=== PATIENT | female | born 1995 | race Caucasian/White ===

== ENCOUNTER → 2017-11-18 | Outpatient (CLI) | payer OTHER ==
[2017-11-18 13:56] LABS: HEMATOCRIT 31.3 % (36.0-47.0); MEAN CORPUSCULAR HEMOGLOBIN 33.5 pg (27.0-33.0); MEAN CORPUSCULAR HGB CONC 35.1 g/dl (32.0-36.5); MEAN CORPUSCULAR VOLUME 95.4 fl (80.0-96.0); PLATELET COUNT, AUTOMATED 290 10^3/uL (150-450); RED BLOOD COUNT 3.28 10^6/uL (4.00-5.40); WHITE BLOOD COUNT 14.9 10^3/uL (4.0-10.0)
[2017-11-18 14:19] LABS: GLUCOSE CHALLENGE TEST 1 HOUR 124 MG/DL (LESS THAN 140)
== END ==
LOC: M LAB 12:48
DX: Z34.02 Encounter for supervision of normal first pregnancy, second trimester (principal); Z3A.00 Weeks of gestation of pregnancy not specified
CPT/HCPCS: 82950

== ENCOUNTER → 2018-01-04 | Outpatient (REF) | payer OTHER | LOC: M LAB REF 12:55 | DX: Z34.03 Encounter for supervision of normal first pregnancy, third trimester (principal) ==

== ENCOUNTER → 2018-01-07 | Outpatient (REF) | payer OTHER | LOC: M LAB REF 12:55 | DX: Z34.03 Encounter for supervision of normal first pregnancy, third trimester (principal) ==

== ENCOUNTER 2018-01-24 19:42 | Inpatient (IN) | payer OTHER ==
[2018-01-24] MEDS ORDERED: LR 1,000 ML IV (23:07)
[2018-01-24 23:49] LABS: HEMATOCRIT 38.6 % (36.0-47.0); HEMOGLOBIN 13.2 g/dl (12.0-15.5); MEAN CORPUSCULAR HEMOGLOBIN 32.5 pg (27.0-33.0); MEAN CORPUSCULAR HGB CONC 34.2 g/dl (32.0-36.5); MEAN CORPUSCULAR VOLUME 95.1 fl (80.0-96.0); PLATELET COUNT, AUTOMATED 296 10^3/uL (150-450); RED BLOOD COUNT 4.06 10^6/uL (4.00-5.40); RED CELL DISTRIBUTION WIDTH 12.3 % (11.5-14.5); WHITE BLOOD COUNT 13.7 10^3/uL (4.0-10.0)
[2018-01-25] MEDS ORDERED: FENTANYL 2MCG/ML ROPIVACAINE 0.2% IN 0.9% NACL 200ML IVBAG As Ordered (00:15)
[2018-01-25] MEDS ORDERED: NALOXONE INJ 0.4 MG/1 ML VIAL (J2310) IV (01:30)
[2018-01-25] MEDS ORDERED: REFRIGERATOR IV KEYS XX (01:30)
[2018-01-25] MEDS ORDERED: EPIDURAL COMMENT XX (01:30)
[2018-01-25] MEDS ORDERED: LACTATED RINGER'S 1000 ML IV (01:30)
[2018-01-25] MEDS ORDERED: FENTANYL/ROPIVACAINE/NACL BAG 200 ML EPIDURAL (01:30)
[2018-01-25] MEDS ORDERED: diphenhydrAMINE INJ 50MG/ML VIAL (J1200) IV (01:30)
[2018-01-25] MEDS ORDERED: ePHEDrine SULFATE 25 MG/5 ML(5MG/ML) SYRINGE IV (01:30)
[2018-01-25] MEDS ORDERED: ONDANSETRON 4MG/2ML VIAL (J2405) IV (01:30)
[2018-01-25] MEDS ORDERED: EPIDURAL/PCA KEYS XX (01:30)
[2018-01-25] MEDS ORDERED: ePHEDrine SULFATE 25 MG/5 ML(5MG/ML) SYRINGE As Ordered (02:10)
[2018-01-25] MEDS: OXYTOCIN DRIP 30 UNITS in APPROPRIATE DILUENT 1 EA IV ×2 (08:31→10:14)
[2018-01-25] MEDS: PRENATAL VITAMINS CHEWABLE TABLET PO (09:00)
[2018-01-25] MEDS: LACTATED RINGER'S 1000 ML IV (09:02)
[2018-01-25] MEDS ORDERED: ANUSOL HC CREAM 30GM TOP (10:15)
[2018-01-25] MEDS ORDERED: DIBUCAINE 1% OINTMENT 30GM TOP (10:15)
[2018-01-25] MEDS ORDERED: METHYLERGONOVINE MALEATE 0.2 MG TAB PO (10:15)
[2018-01-25] MEDS ORDERED: DOCUSATE SODIUM 100 MG CAP PO (10:15)
[2018-01-25] MEDS: MEASLES,MUMPS,RUBELLA VACCINE INJ (MMR-II) (90707) SC (13:22)
[2018-01-25] MEDS: RHOGAM 300 MCG (1500 IU) INJ (J2790) IM (13:22)
[2018-01-25] MEDS: IBUPROFEN 800 MG TAB PO ×2 (13:47→22:59)
[2018-01-26] MEDS: IBUPROFEN 800 MG TAB PO ×2 (07:48→17:20)
[2018-01-26] MEDS: PRENATAL VITAMINS CHEWABLE TABLET PO (07:48)
[2018-01-27] MEDS: IBUPROFEN 800 MG TAB PO (05:39)
[2018-01-27] MEDS: ACETAMINOPHEN 500 MG TAB PO (07:44)
[2018-01-27] MEDS: PRENATAL VITAMINS CHEWABLE TABLET PO (07:44)
== END 2018-01-27 11:48 | disposition home or self-care (01) | DRG 560 ==
LOC: M LDO 19:42 → M LDI 23:09 → M OBS 01-25 13:07
PROVIDERS: Obstetrics & Gynecology
PROC: 10E0XZZ Delivery of Products of Conception, External Approach (ICD-10-PCS; principal; 2018-01-25)
PROC: 0HQ9XZZ Repair Perineum Skin, External Approach (ICD-10-PCS; 2018-01-25)
DX: O70.0 First degree perineal laceration during delivery (principal); O99.820 Streptococcus B carrier state complicating pregnancy; Z37.0 Single live birth; Z3A.37 37 weeks gestation of pregnancy

== ENCOUNTER 2018-03-03 11:38 | Emergency (ER) | payer OTHER | END 2018-03-03 12:45 | disposition home or self-care (01) | LOC: M ED 11:38 | DX: O99.345 Other mental disorders complicating the puerperium (principal); F53.0 Postpartum depression | CPT/HCPCS: 99282 ==

== ENCOUNTER → 2018-03-15 | Outpatient (REF) | payer OTHER ==
[2018-03-15 22:08] LABS: FREE T4 1.01 NG/DL (0.76-1.46)
[2018-03-15 22:08] LABS: THYROID STIMULATING HORMONE 0.632 uIU/ML (0.358-3.740)
== END ==
LOC: M SFHCCLAY 11:30
DX: F53.0 Postpartum depression (principal)
CPT/HCPCS: 84443

== ENCOUNTER → 2019-03-20 | Outpatient (CLI) | payer OTHER, SELFPAY ==
[~2019-03-20] MED LIST: IBUP-1114 PO; MAPA500T2 PO; OMEP40CA97; OMEP40CA97 PO; PRE-TAB3 PO; PREN1TAB26 PO
--- NOTE | 2019-03-20 11:24 | REP ---
Clinical: Dyspnea . Comparison: None . Technique: PA and lateral. Findings: The mediastinum and cardiac silhouette are normal. The lung phelps are clear and without acute consolidation, effusion, or pneumothorax. The skeletal structures are intact and normal. Impression: 1. No acute cardiopulmonary process. Electronically Signed by Edward Coombs MD 03/20/2019 11:15 A
== END ==
LOC: M CLY 10:58
PROVIDERS: ATTEND Family Medicine
DX: R05 Cough (principal); R06.89 Other abnormalities of breathing

== ENCOUNTER 2019-05-09 13:59 | Emergency (ER) | payer MEDICAID, SELFPAY ==
[~2019-05-09] VITALS: Ht 157.5 cm; Wt 86.4 kg
[2019-05-09 14:00] VITALS: BP 172/85
[2019-05-09] MEDS ORDERED: CARBOT OT (14:12)
[2019-05-09] MEDS ORDERED: AUGM875T28 PO (15:38)
== END 2019-05-09 15:57 | disposition home or self-care (01) ==
LOC: M ED 13:59
DX: H66.91 Otitis media, unspecified, right ear (principal); F17.218 Nicotine dependence, cigarettes, with other nicotine-induced disorders

== ENCOUNTER → 2022-08-20 | Outpatient (REF) | payer OTHER ==
[~2022-08-20] MED LIST changes: +AUGM875T28 PO; +CARBOT OT; +OMEP40CA4; +OMEP40CA4 PO; -OMEP40CA97; -OMEP40CA97 PO
[2022-08-20 17:50] LABS: HEMOGLOBIN 13.1 g/dl (12.0-15.5); MEAN CORPUSCULAR HEMOGLOBIN 30.3 pg (27.0-33.0); MEAN CORPUSCULAR HGB CONC 32.8 g/dl (32.0-36.5); MEAN CORPUSCULAR VOLUME 92.4 fl (80.0-96.0); PLATELET COUNT, AUTOMATED 412 10^3/uL (150-450); RED BLOOD COUNT 4.33 10^6/uL (4.00-5.40); WHITE BLOOD COUNT 10.3 10^3/uL (4.0-10.0)
[2022-08-20 17:51] LABS: ALBUMIN 4.2 G/DL (3.2-5.2); ALKALINE PHOSPHATASE 73 U/L (46-116); ALT/SGPT 31 U/L (7.0-40); AST/SGOT 25 U/L (<34); BILIRUBIN,TOTAL 0.5 MG/DL (0.3-1.2); BLOOD UREA NITROGEN 12 MG/DL (9-23); CALCIUM LEVEL 9.5 MG/DL (8.5-10.1); CARBON DIOXIDE LEVEL 28 MMOL/L (20-31); CHLORIDE LEVEL 102 MMOL/L (98-107); CHOLESTEROL LEVEL 206 MG/DL (<200); CHOLESTEROL RISK RATIO 4.53 (<5); CREATININE FOR GFR 0.69 MG/DL (0.55-1.30); FREE T4 1.01 NG/DL (0.89-1.76); GLOMERULAR FILTRATION RATE > 60.0 (>60); GLUCOSE, FASTING 86 MG/DL (60-100); HDL CHOLESTEROL 45.4 MG/DL (>40); LDL CHOLESTEROL 123.6 MG/DL (<100); NON-HDL-C 160.6 MG/DL; POTASSIUM SERUM 4.1 MMOL/L (3.5-5.1); SODIUM LEVEL 136 MMOL/L (136-145); THYROID STIMULATING HORMONE 1.049 uIU/ML (0.55-4.78); TOTAL PROTEIN 7.3 G/DL (5.7-8.2); TRIGLYCERIDES LEVEL 185 MG/DL (<150)
== END ==
LOC: M SFHCCLAY 14:18
PROVIDERS: ATTEND Nurse Practitioner Family
DX: F41.8 Other specified anxiety disorders (principal); R53.82 Chronic fatigue, unspecified; Z13.220 Encounter for screening for lipoid disorders

== ENCOUNTER → 2024-09-20 | Outpatient (RCR) | payer OTHER | LOC: M PT 09-12 09:48 | PROVIDERS: ATTEND Otolaryngology | DX: M26.601 Right temporomandibular joint disorder, unspecified (principal) ==

== ENCOUNTER → 2025-04-26 | Outpatient (REF) | payer OTHER ==
[~2025-04-26] MED LIST changes: +CARB15DR25 OT; -CARBOT OT
== END ==
LOC: M SFHCCLAY 17:12
PROVIDERS: ATTEND Physician Assistant
DX: J02.9 Acute pharyngitis, unspecified (principal)